=== PATIENT | male | born 1995 | race Caucasian/White ===

== ENCOUNTER 2019-08-09 18:15 | Emergency (ER) | payer OTHER ==
[2019-08-09 18:24] VITALS: BP 149/85; PULSE 89; RESP 16; TEMP 97.7
[2019-08-09] MEDS ORDERED: FAMOTIDINE 20 MG/2 ML VIAL IV STA (18:41)
[2019-08-09] MEDS ORDERED: KETOROLAC 30 MG/ML 1 ML VIAL IVP STA (18:41)
[2019-08-09] MEDS ORDERED: methylPREDNISolone SOD SUCCI 125 MG/2 ML VIAL IV STA (18:41)
--- NOTE | 2019-08-09 19:22 | ED ---
Skin/Abscess/FB HPI - General Chief complaint: Skin/Abscess/Foreign Body Stated complaint: Rash Time Seen by Provider: 08/09/19 18:20 Source: patient Mode of arrival: ambulatory Limitations: no limitations - History of Present Illness Initial comments: 24 year-old male patient presents to the emergency department for evaluation of rash. Patient states that he has had the rash for the last 2 weeks. States he was seen at [facility] twice and was given antibiotics and steroids. Patient states that the rash is been over his face, trunk, and arms. States at one point was on his legs. States during the steroids and antibiotics he did develop hives all over his body. He did show me pictures. Denies any fevers or chills with this. States the rash is not itchy just is very painful. Denies any blistering or open wounds. Denies any fever or chills. Denies any exposure to new substances. Denies any new medications. Denies any travel. Patient denies any recent cough, shortness of breath, chest pain, abdominal pain, nausea, vomiting, diarrhea, constipation, back pain, numbness, tingling, dizziness, weakness, hematuria, dysuria, urinary urgency, urinary frequency, headache, visual changes, or any other complaints. - Related Data Previous Rx's Medication Instructions Recorded Ibuprofen [Motrin] 600 mg PO Q8HR PRN #30 tab 02/27/14 Famotidine [Pepcid] 20 mg PO DAILY #5 tablet 08/09/19 Hydrocortisone Oint 1 applic TOPICAL BID #30 gm 08/09/19 [Hydrocortisone 2.5% Oint] Naproxen [EC-Naprosyn] 500 mg PO BID PRN #30 tablet. 08/09/19 predniSONE 0 mg PO DIRECTED #55 tab 08/09/19 Allergies Allergy/AdvReac Type Severity Reaction Status Date / Time No Known Allergies Allergy Verified 08/09/19 18:21 Review of Systems ROS Statement: Those systems with pertinent positive or pertinent negative responses have been documented in the HPI. ROS Other: All systems not noted in ROS Statement are negative. Past Medical History Past Medical History: No Reported History Additional Past Medical History / Comment(s): CURRENT: PER MOTHER PATIEN HURT HIS WRIST SEVERAL MONTHS AGO, BELIEVE IT MAY BE AN OLD FX AGGRAVATED BY THE PATIENT'S CURRENT EMPLOYEMENT. History of Any Multi-Drug Resistant Organisms: None Reported Past Surgical History: Tonsillectomy Additional Past Surgical History / Comment(s): left knee ACL REPAIR Past Anesthesia/Blood Transfusion Reactions: No Reported Reaction Past Psychological History: No Psychological Hx Reported Smoking Status: Light tobacco smoker Past Alcohol Use History: Occasional Past Drug Use History: None Reported - Past Family History Mother Family Medical History: No Reported History General Exam Limitations: no limitations General appearance: alert, in no apparent distress, other (This is a well- developed, well-nourished adult male patient in no acute distress. Vital signs upon presentation are temperature 97.7F, pulse 89, respirations 16, blood pressure 149/85, pulse ox 99% on room air) Eye exam: Present: normal appearance, PERRL, EOMI. Absent: scleral icterus, conjunctival injection, periorbital swelling ENT exam: Present: normal exam, normal oropharynx, mucous membranes moist Respiratory exam: Present: normal lung sounds bilaterally. Absent: respiratory distress, wheezes, rales, rhonchi, stridor Cardiovascular Exam: Present: regular rate, normal rhythm, normal heart sounds. Absent: systolic murmur, diastolic murmur, rubs, gallop, clicks Neurological exam: Present: alert, oriented X3, CN II-XII intact Psychiatric exam: Present: normal affect, normal mood Skin exam: Present: warm, dry, intact, normal color, rash (Rash noted over the trunk, arms, and back. Most lesions are papular and scabbed, discrete. There are some erythematous patches that are tender to touch. Lesions are non-petechial and non-vesicular. No surrounding erythema. ) Course Vital Signs 08/09/19 18:22 Temperature 97.7 F Pulse Rate 89 Respiratory 16 Rate Blood Pressure 149/85 O2 Sat by Pulse 99 Oximetry Medical Decision Making - Medical Decision Making 24-year-old male patient presents to the emergency department today for evaluation of rash to his arms and trunk. Physical examination did reveal erythematous rash in patches and discrete papules over the trunk and arms. No vesicles or petechiae noted. Patient is afebrile with normal vital signs. Labs reviewed and are unremarkable. Was given IV Solu Medrol, Pepcid, and Toradol. Reports mild improvement of symptoms with the medications. To be discharged with steroids, Pepcid, and hydrocortisone cream. At this time the exact etiology of the rash is not clear, but given recent urticaria it is felt to be viral in nature. My attending Dr. Walker was in to evaluate patient as well. He is instruct ed to follow-up with dermatology for further evaluation. Return parameters were discussed in detail. He verbalizes understanding and agrees with this plan. - Lab Data Result diagrams: 08/09/19 18:55 08/09/19 18:55 Lab Results 08/09/19 08/09/19 08/09/19 Range/Units 18:55 18:55 18:55 WBC 10.3 (3.8-10.6) k/uL RBC 4.86 (4.30-5.90) m/uL Hgb 15.5 (13.0-17.5) gm/dL Hct 46.2 (39.0-53.0) % MCV 95.1 (80.0-100.0) fL MCH 32.0 (25.0-35.0) pg MCHC 33.7 (31.0-37.0) g/dL RDW 12.1 (11.5-15.5) % Plt Count 183 (150-450) k/uL Neutrophils % 57 % Lymphocytes % 30 % Monocytes % 7 % Eosinophils % 4 % Basophils % 0 % Neutrophils # 5.8 (1.3-7.7) k/uL Lymphocytes # 3.1 (1.0-4.8) k/uL Monocytes # 0.7 (0-1.0) k/uL Eosinophils # 0.4 (0-0.7) k/uL Basophils # 0.0 (0-0.2) k/uL Sodium 140 (137-145) mmol/L Potassium 4.4 (3.5-5.1) mmol/L Chloride 102 (98-107) mmol/L Carbon Dioxide 32 H (22-30) mmol/L Anion Gap 6 mmol/L BUN 15 (9-20) mg/dL Creatinine 0.94 (0.66-1.25) mg/dL Est GFR (CKD-EPI)AfAm >90 (>60 ml/min/1.73 sqM) Est GFR (CKD-EPI)NonAf >90 (>60 ml/min/1.73 sqM) Glucose 59 L (74-99) mg/dL Calcium 9.7 (8.4-10.2) mg/dL Total Bilirubin 0.9 (0.2-1.3) mg/dL AST 31 (17-59) U/L ALT 21 (4-49) U/L Alkaline Phosphatase 55 (38-126) U/L Total Protein 7.0 (6.3-8.2) g/dL Albumin 4.5 (3.5-5.0) g/dL Urine Color Colorless Urine Appearance Clear (Clear) Urine pH 7.0 (5.0-8.0) Ur Specific [place] 1.002 (1.001-1.035) Urine Protein Negative (Negative) Urine Glucose (UA) Negative (Negative) Urine Ketones Negative (Negative) Urine Blood Negative (Negative) Urine Nitrite Negative (Negative) Urine Bilirubin Negative (Negative) Urine Urobilinogen <2.0 (<2.0) mg/dL Ur Leukocyte Esterase Negative (Negative) Disposition Clinical Impression: Rash Disposition: HOME SELF-CARE Condition: Good Instructions (If sedation given, give patient instructions): Acute Rash (ED) Additional Instructions: Take medications as directed. Stick to cool baths or showers. Use ointment as directed. Follow up with dermatology if symptoms do not improve. Return to the emergency department immediately for any new, worsening, or concerning symptoms. Prescriptions: Naproxen [EC-Naprosyn] 500 mg PO BID PRN #30 tablet.dr RAGLAND Reason: Pain Hydrocortisone Oint [Hydrocortisone 2.5% Oint] 1 applic TOPICAL BID #30 gm Famotidine [Pepcid] 20 mg PO DAILY #5 tablet predniSONE 0 mg PO DIRECTED #55 tab Is patient prescribed a controlled substance at d/c from ED?: No Referrals: Juliana Reveles MD [STAFF PHYSICIAN] - 1-2 days Time of Disposition: 20:45
[2019-08-09 20:12] LABS: Basophils % (A) 0 %; Eosinophils # (A) 0.4 k/uL (0-0.7); Eosinophils % (A) 4 %; HCT 46.2 % (39.0-53.0); HGB 15.5 gm/dL (13.0-17.5); Lymphocytes # (A) 3.1 k/uL (1.0-4.8); Lymphocytes % (A) 30 %; MCHC 33.7 g/dL (31.0-37.0); MCV 95.1 fL (80.0-100.0); Monocytes # (A) 0.7 k/uL (0-1.0); Monocytes % (A) 7 %; Neutrophils # (A) 5.8 k/uL (1.3-7.7); Neutrophils % (A) 57 %; Platelet Count 183 k/uL (150-450); RBC 4.86 m/uL (4.30-5.90); RDW 12.1 % (11.5-15.5); WBC 10.3 k/uL (3.8-10.6)
[2019-08-09 20:16] LABS: Appearance,Urine Clear (Clear); Bilirubin,Urine Negative (Negative); Blood,Urine Negative (Negative); Color,Urine Colorless; Glucose,Urine (UA) Negative (Negative); Ketones,Urine Negative (Negative); Leukocyte Esterase,Urine Negative (Negative); Nitrite,Urine Negative (Negative); Protein,Urine Negative (Negative); Specific Gravity,Urine 1.002 (1.001-1.035); Urobilinogen,Urine <2.0 mg/dL (<2.0)
[2019-08-09 20:22] LABS: ALT 21 U/L (4-49); AST 31 U/L (17-59); African American GFR (CKD) >90 (>60 ml/min/1.73 sqM); Albumin 4.5 g/dL (3.5-5.0); Alkaline Phosphatase 55 U/L (38-126); Anion Gap 6 mmol/L; Blood Urea Nitrogen 15 mg/dL (9-20); Calcium 9.7 mg/dL (8.4-10.2); Carbon Dioxide 32 mmol/L (22-30); Chloride 102 mmol/L (98-107); Glucose 59 mg/dL (74-99); Non-African American GFR(CKD) >90 (>60 ml/min/1.73 sqM); Potassium 4.4 mmol/L (3.5-5.1); Sodium 140 mmol/L (137-145); Total Bilirubin 0.9 mg/dL (0.2-1.3)
== END 2019-08-09 20:55 | disposition home or self-care (01) ==
LOC: EC 18:15
DX: R21 Rash and other nonspecific skin eruption (principal); F17.210 Nicotine dependence, cigarettes, uncomplicated
CPT/HCPCS: 36415; 80053; 85025; 81003; 96374; 96375 ×2; 99283; J2930; J1885